=== PATIENT | male | born 1980 | race Caucasian/White ===

== ENCOUNTER → 2020-06-14 | Outpatient (CLI) | payer OTHER ==
[~2020-06-14] MED LIST: CATHETER FLUSH 10 ML SYR IV PRN; HOLD METFORMIN - RECEIVED CONTRAST 20 ML VIAL IV SCH; IOHEXOL 350 MG/ML 100 ML (OMNIPAQUE 350) VIAL IV ONE; NS 100 ML (IVPB) BAG IV ONE
--- NOTE | 2020-06-14 12:02 | Diagnostic Imaging Report ---
PROCEDURE: CT angiography of the chest with contrast. TECHNIQUE: Multiple contiguous axial images were obtained through the chest after uneventful bolus administration of intravenous contrast. 3D reconstructed CTA MIP acquisitions were also performed. Auto Exposure Controls were utilized during the CT exam to meet ALARA standards for radiation dose reduction. INDICATION: Cough, lower extremity thrombus. FINDINGS: The pulmonary arterial branches are patent. No filling defect or PE. There is a small pericardial effusion in the superior pericardial recess. Thoracic aorta is patent and nonaneurysmal. There is no pleural effusion. No focal pulmonary consolidation. The heart size within normal limits. No overt vascular congestion. No acute appearing infiltrate. IMPRESSION: Negative for PE. No focal infiltrate. Dictated by: Dictated on workstation # [id number]
== END ==
LOC: RAD 10:39 → EDSEX 11:15
PROVIDERS: ATTEND Nurse Practitioner Family
DX: I82.409 Acute embolism and thrombosis of unspecified deep veins of unspecified lower extremity (principal); R05 Cough
CPT/HCPCS: 71275

== ENCOUNTER → 2020-07-26 | Outpatient (CLI) | payer OTHER ==
[~2020-07-26] MED LIST changes: -CATHETER FLUSH 10 ML SYR IV PRN; -HOLD METFORMIN - RECEIVED CONTRAST 20 ML VIAL IV SCH; -IOHEXOL 350 MG/ML 100 ML (OMNIPAQUE 350) VIAL IV ONE; -NS 100 ML (IVPB) BAG IV ONE; +RT-ALBUTEROL SULF 2.5 MG/3 ML PRE-MIX VIAL INH ONE
== END ==
LOC: RT 09:55
PROVIDERS: ATTEND Nurse Practitioner Family
DX: R06.00 Dyspnea, unspecified (principal); Z79.01 Long term (current) use of anticoagulants; Z86.718 Personal history of other venous thrombosis and embolism
CPT/HCPCS: 94060; 94726; 94729

== ENCOUNTER → 2021-01-12 | Outpatient (CLI) | payer OTHER ==
[~2021-01-12] MED LIST changes: +CATHETER FLUSH 10 ML SYR IV PRN; +HOLD METFORMIN - RECEIVED CONTRAST 20 ML VIAL IV SCH; +IOHEXOL 350 MG/ML 100 ML (OMNIPAQUE 350) VIAL IV ONE; +NS 100 ML (IVPB) BAG IV ONE; -RT-ALBUTEROL SULF 2.5 MG/3 ML PRE-MIX VIAL INH ONE
--- NOTE | 2021-01-12 18:15 | Diagnostic Imaging Report ---
CT ABDOMEN/PELVIS W TECHNIQUE: Multiple contiguous axial images were obtained through the abdomen and pelvis after administration of intravenous contrast. All CT scans use one or more of the following dose optimizing techniques: automated exposure control, MA and/or KvP adjustment based on patient size and exam type or iterative reconstruction. INDICATION: Nausea and vomiting COMPARISON: None available. FINDINGS: Lower chest: The lung bases are clear. No pericardial or pleural effusion. Peritoneum: No free intraperitoneal air or fluid. Liver and biliary system: The liver is normal. Cholecystectomy. No biliary duct dilatation. Spleen and Pancreas: Spleen is normal. The pancreas enhances normally without mass lesion or peripancreatic inflammatory changes. Adrenals: Normal. tract: The kidneys enhance normally without suspicious mass or obstruction. Urinary bladder is distended without wall thickening. Prostate is not enlarged. No renal or ureteral stones. GI tract: Small sliding-type hiatal hernia. Stomach is fluid-filled and has no wall thickening. No bowel obstruction. No pericolonic inflammatory changes. Appendix is not seen but there are no features of appendicitis. Vasculature and Lymph nodes: Normal caliber aorta. No abdominal or pelvic lymphadenopathy. Musculoskeletal: No concerning osseous lesion. IMPRESSION: 1. No acute inflammatory or obstructive process. 2. Small sliding-type hiatal hernia. Dictated by: Dictated on workstation # [id number]
== END ==
LOC: RAD 14:15
PROVIDERS: ATTEND Clinical Nurse Specialist Emergency
DX: K44.9 Diaphragmatic hernia without obstruction or gangrene (principal)
CPT/HCPCS: 74177

== ENCOUNTER 2021-02-13 05:41 | Outpatient (CLI) | payer OTHER ==
[~2021-02-13] VITALS: Ht 198.1 cm; Wt 119.8 kg
[2021-02-14] MEDS ORDERED: RIVA20TA PO (14:08)
[2021-02-14] MEDS ORDERED: LEVO50TA6 PO (14:08)
[2021-02-14] MEDS ORDERED: LISI-729 PO (14:08)
== END 2021-02-14 15:58 | disposition home or self-care (01) ==
LOC: PREOP 05:41
PROVIDERS: ATTEND Surgery
DX: Z01.818 Encounter for other preprocedural examination (principal)

== ENCOUNTER → 2021-02-17 | Outpatient (CLI) | payer OTHER ==
[~2021-02-17] MED LIST changes: -CATHETER FLUSH 10 ML SYR IV PRN; -HOLD METFORMIN - RECEIVED CONTRAST 20 ML VIAL IV SCH; -IOHEXOL 350 MG/ML 100 ML (OMNIPAQUE 350) VIAL IV ONE; +LEVO50TA6 PO; +LISI-729 PO; -NS 100 ML (IVPB) BAG IV ONE; +RIVA20TA PO
== END ==
LOC: LAB FS 10:00
PROVIDERS: ATTEND Surgery
DX: Z01.812 Encounter for preprocedural laboratory examination (principal); R11.2 Nausea with vomiting, unspecified; Z20.822 Contact with and (suspected) exposure to COVID-19
CPT/HCPCS: 87635

== ENCOUNTER 2021-02-20 08:52 | Day surgery (SDC) | payer OTHER ==
[~2021-02-20] VITALS: Ht 198 cm; Wt 120.0 kg
[2021-02-20] MEDS ORDERED: LACTATED RINGERS 1,000 ML IV STA (08:53)
[2021-02-20] MEDS ORDERED: LACTATED RINGERS 1,000 ML IV ONE (08:58)
[2021-02-20] MEDS ORDERED: HURRICAINE EXT TUBE (BENZOCAINE) XX PRN (09:00)
[2021-02-20 09:05] VITALS: BP 143/80
--- NOTE | 2021-02-20 09:32 | Progress Note-Pre Operative ---
Pre-Operative Progress Note H&P Reviewed The H&P was reviewed, patient examined and no changes noted. Time Seen by Provider: 09:28 Date H&P Reviewed: Feb 20, 2021 Time H&P Reviewed: :28 Pre-Operative Diagnosis: nausea/vomiting, chronic gastritis NEREIDA DUBOIS DO Feb 20, 2021 09:32
[2021-02-20] MEDS ORDERED: MIDAZOLAM 2 MG/2 ML (VERSED) VIAL ONE (10:00)
[2021-02-20] MEDS ORDERED: proPOfol 200 MG/20 ML (DIPRIVAN) VIAL IV ONE ×2 (10:00→10:11)
[2021-02-20 10:20] VITALS: BP 107/63
--- NOTE | 2021-02-20 10:22 | Progress Note-Post Operative ---
Post-Operative Progess Note Surgeon (s)/Supervisor Metal Placing (s) Surgeon NEREIDA DUBOIS DO Supervisor Metal Placing: none Pre-Operative Diagnosis nausea/vomiting, chronic gastritis Post-Operative Diagnosis Gastritis Hiatal Hernia Gastric polyps Procedure & Operative Findings Date of Procedure 02/20/21 Procedure Performed/Findings 1) EGD with bx 2) EGD with polypectomy by hot bx PROCEDURE NOTE: After informed consent was obtained, the patient was brought to the endoscopy suite, placed in bed in left lateral decubitus position. He was administered IV sedation by the COMPUTER NETWORK ENGINEER who then monitored vitals the entire time, heart rate, blood pressure and pulse ox and the scope was inserted down the mouth through the esophagus into the stomach. On the way down, noted some mild esophagitis, took a picture, pushed into the stomach, pushed past the antrum into the duodenum. Duodenum looked good. Pulled back and did a biopsy of antrum, then retroflexed the scope, saw a moderate sized hiatal hernia and multiple gastric polyps. Took a picture of these and then elected to do a polypectomy with hot biopsy, removed 2 of the polyps. Then pulled the scope into the GE junction, and then did a biopsy of the GE junction. Pushed the scope back into the stomach, suctioned all the air out of the stomach. At this point pulled the scope up the esophagus and out the mouth. The patient tolerated the procedure, and he recovered in endoscopy suite. Anesthesia Type IV sedation by anesthesia Estimated Blood Loss Estimated blood loss (mL): scant Specimens/Packing Specimens Removed antral bx GE jxn bx Gastric polyp x 2 NEREIDA DUBOIS DO Feb 20, 2021 10:22
--- NOTE | 2021-02-20 10:22 | Endoscopy Discharge Instruct ---
Endo Procedure/Findings Findings 1.: Gastritis 2.: Hiatal Hernia 3.: Other Findings (Gastric polyps) Discharge Instructions - Activity: You might feel a little sleepy until tomorrow. This is due to the medicine you received to relax you. Until tomorrow, you should: NOT drive a car, operate machinery or power tools. NOT drink any alcoholic beverages. NOT make any important decisions or sign importortant papers. Do not return to work until tomorrow, unless otherwise instructed. Resume previous activities tomorrow. Diet: Start by taking liquids. If you tolerate liquids, advance to solid food. 1.: EGD in 1 year Notify Physician - If you experience excessive bleeding, unusual abdominal pain, fever, or chest pain, contact your doctor immediately. NEREIDA DUBOIS DO Feb 20, 2021 10:22
[2021-02-20 10:25] VITALS: BP 103/64
[2021-02-20 10:45] VITALS: BP 117/79
[2021-02-20 10:46] VITALS: BP 117/79
--- NOTE | 2021-02-20 15:12 | Anesthesia-General Post-Op ---
MAC Patient Condition Mental Status/LOC: Same as Preop Cardiovascular: Satisfactory Nausea/Vomiting: Absent Respiratory: Satisfactory Pain: Controlled Complications: Absent Post Op Complications Complications None Follow Up Care/Instructions Patient Instructions None needed. Anesthesiology Discharge Order Discharge Order Patient was seen after the procedure and he was doing well, no complaints, stable vital signs, no apparent adverse anesthesia problems. PIERCE HUBER DO Feb 20, 2021 15:12
--- OUTSIDE RECORDS SUMMARY | 2021-02-23 07:21 | XMS REPORT | Clinical Summary ---
Author Author [facility] Organization [facility] Address Unknown Phone Unavailable Care Team Providers Care Audiology Assistant Name Role Phone Star Hutchinson MD PCP Allergies No Known Active Allergies Medications End Date Status Medication Sig Dispensed Refills Start Date Active rivaroxaban (XARELTO) 20 Take 1 tablet 90 tablet 3 09/22/201 mg tablet (20 mg total) 9 by mouth daily. Active Problems Problem Noted Date Chronic pulmonary embolism 09/21/2019 Last Assessment & Plan: Formatting of this note might be differ ent from the original. -CT angiogram of chest 03/31/2019: bilat eral old pulmonary embolism. -with persistent exertional dyspnea. -with un-intentional weight gain. -At risk for right-sided heart failure and pulmonary hypertension. 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 -Patient stated that he just started go ing to another clinic in [facility] for primary care due to his insu aminata coverage. -We will refill his Xarelto one more ti me (after obtaining his outside lab results) and defer future treatment and referral to patient's new primary care provider. Elevated blood pressure reading 09/21/2019 Last Assessment & Plan: Formatting of this note might be differ ent from the original. -09/21/2019 BP reading higher than his ba hanane. -Need to recheck his BP to confirm the diagnosis of hypertension. Daytime somnolence 09/21/2019 Last Assessment & Plan: Formatting of this note might be differ ent from the original. -Need evaluation for sleep apnea as a c ause of his daytime sleepiness. 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 Heterozygous factor V Leiden mutation 09/22/2018 Bilateral foot pain 09/22/2018 Recurrent acute deep vein thrombosis (DVT) of both lo wer extremities 02/08/2017 Resolved Problems Problem Noted Date Resolved Date Acute deep vein thrombosis (DVT) of femoral vein of r ight lower extremity 01/13/2018 09/22/2018 Family History Medical History Relation Name Comments Clotting disorder Mother Relation Name Status Comments Father Alive Mother Alive Social History Date Tobacco Use Types Packs/Day Years Used Never Smoker Smokeless Tobacco: Never Used Comments Alcohol Use Standard Drinks/Week No 0 (1 standard drink = 0.6 o z pure alcohol) Sex Assigned at Date Recorded Not on file Last Filed Vital Signs Reading Time Taken Comments Vital Sign 140/92 09/21/2019 8:27 AM PATTERN HAND Blood Pressure 82 09/21/2019 8:27 AM PATTERN HAND Pulse 36.7 C (98.1 F) 09/21/2019 8:27 AM PATTERN HAND Temperature 18 03/26/2019 8:58 AM CDT Respiratory Rate 94% 09/21/2019 8:27 AM PATTERN HAND Oxygen Saturation - - Inhaled Oxygen Concentration 122.5 kg (270 lb) 09/21/2019 8:27 AM PATTERN HAND Weight 201.9 cm (6' 7.5") 09/21/2019 8:27 AM PATTERN HAND Height 30.04 09/21/2019 8:27 AM PATTERN HAND Body Mass Index Plan of Treatment Health Maintenance Due Date Last Done Comments Td/Tdap# 1980 COVID-19 Vaccine (1) 1994 Influenza Vaccine (#1) 2021 Pneumococcal Vaccine: Aged Out No longer eligib le based on patient's age to Pediatrics (0 to 5 Years) complete this topic and At-Risk Patients (6 to 64 Years) Results Not on filefrom Last 3 Months Insurance Type Payer Benefit Subscriber ID Effective Phone Address Plan / Dates Group MEDICAID PENDING MEDICAID [id number] 2019-P PENDING resent Fede Carvalho Personal/F Self 1980 [id number] [place] (Home) [place] [id number] Fede Carvalho Personal/F Self 1980 [id number] (Home) [place] [address] Advance Directives For more information, please contact: [phone] Patient Clinical Sciences Professor Explanation Type Date Recorded Advance Directives and Living Will Power of Marine Insurance Claim Examiner Health Care Directive
== END 2021-02-20 10:53 | disposition home or self-care (01) ==
LOC: ENDO 08:52
PROVIDERS: ATTEND Surgery
DX: K31.7 Polyp of stomach and duodenum (principal); K29.50 Unspecified chronic gastritis without bleeding; K21.00 Gastro-esophageal reflux disease with esophagitis, without bleeding; K44.9 Diaphragmatic hernia without obstruction or gangrene; I10 Essential (primary) hypertension; E66.01 Morbid (severe) obesity due to excess calories; Z79.01 Long term (current) use of anticoagulants; Z68.30 Body mass index [BMI] 30.0-30.9, adult; Z79.899 Other long term (current) drug therapy; Z90.49 Acquired absence of other specified parts of digestive tract; Z98.890 Other specified postprocedural states
CPT/HCPCS: 88305

== ENCOUNTER → 2022-07-19 | Outpatient (CLI) | payer OTHER ==
[~2022-07-19] MED LIST changes: -LISI-729 PO; +LISI5TAB20 PO
--- NOTE | 2022-07-19 17:06 | Diagnostic Imaging Report ---
INDICATION: Right foot abrasion EXAM: Arterial Doppler right lower extremity TECHNIQUE: Duplex ultrasound of the arterial system of the right leg was done with grayscale, spectral waveform and color Doppler flow analysis FINDINGS: The patient has triphasic wave patterns throughout the leg. There is normal velocity and velocity transition from the groin to the ankles. IMPRESSION: Normal arterial Doppler of the right leg. Dictated by: Dictated on workstation # [id number]
== END ==
LOC: RAD FS 12:20
PROVIDERS: ATTEND Clinical Nurse Specialist Emergency
DX: S90.811A Abrasion, right foot, initial encounter (principal); X58.XXXA Exposure to other specified factors, initial encounter
CPT/HCPCS: 93926